=== PATIENT | female | born 1970 ===

== ENCOUNTER 2016-08-09 11:24 | Emergency (ER) | payer OTHER ==
[2016-08-09 11:24] VITALS: BMI 28.1
[2016-08-09 11:29] VITALS: BP 114/73; PULSE 60; RESP 16; TEMP 97.7; O2SAT 100
--- NOTE | 2016-08-09 12:20 | C.PDOC ---
History Of Present Illness 45 year old female presents to the ED with complaints of right shoulder pain s/ p falling 3 days ago. Patient states she was asleep on a chair when she slipped and fell on her right shoulder. Contrary to triage, patient denies any LOC and notes she has been using OTC medication with no relief. Denies head injury, neck pain, back pain, weakness, numbness, or any other complaints at this time. Time Seen by Provider: 08/09/16 11:31 Chief Complaint (Nursing): Upper Extremity Problem/Injury History Per: Patient History/Exam Limitations: no limitations Onset/Duration Of Symptoms: Days Current Symptoms Are (Timing): Still Present Severity: Mild Past Medical History Reviewed: Historical Data, Nursing Documentation, Vital Signs Vital Signs: Last Vital Signs Temp 97.7 F 08/09/16 11:28 Pulse 60 08/09/16 11:28 Resp 16 08/09/16 11:28 BP 114/73 08/09/16 11:28 Pulse Ox 100 08/09/16 13:30 - Medical History PMH: Anxiety, Arthritis, Asthma, Back Problems (HERNIATED DISC), Bipolar Disorder, Depression, Gastritis, Gastrointestinal Ulcer, Hepatitis, Kidney Stones, Pancreatitis, Post Traumatic Stress Disorder - [facility] Procedures INDIVID PSYCHOTHERAP NEC (11/01/12) OTHER GROUP THERAPY (11/01/12) Family History: States: CAD, Diabetes, Hypertension - Social History Hx Tobacco Use: Yes Hx Alcohol Use: No Hx Substance Use: Yes (heroin) - Immunization History Hx Tetanus Toxoid Vaccination: Yes Hx Influenza Vaccination: Yes Hx Pneumococcal Vaccination: No Review Of Systems Constitutional: Negative for: Fever, Chills Cardiovascular: Negative for: Chest Pain, Palpitations Respiratory: Negative for: Shortness of Breath Gastrointestinal: Negative for: Nausea, Vomiting, Abdominal Pain Musculoskeletal: Positive for: Shoulder Pain (+Right shoulder pain). Negative for: Neck Pain, Back Pain Neurological: Negative for: Weakness, Numbness Physical Exam - Physical Exam Appears: Non-toxic, No Acute Distress Skin: Warm, Dry, Ecchymosis (+Area of ecchymosis to the anterior lateral right shoulder) Head: Atraumatic, Normacephalic, No Tenderness, No Swelling, No Abrasion Eye(s): bilateral: Normal Inspection Oral Mucosa: Moist Neck: Supple Chest: Symmetrical Respiratory: No Accessory Muscle Use Extremity: No Normal ROM (Unable to abduct past ~70 degrees), Tenderness (+ Tenderness to the anterior lateral right shoulder), Capillary Refill (< 2 seconds), No Deformity, Swelling (+Swelling to the anterior lateral right shoulder) Pulses: Left Radial: Normal, Right Radial: Normal Neurological/Psych: Oriented x3, Normal Speech, Normal Cognition, Normal Motor, Normal Sensation ED Course And Treatment O2 Sat by Pulse Oximetry: 100 (Room air) Pulse Ox Interpretation: Normal () - Other Rad Right Shoulder X-ray X-Ray: Viewed By Me, Read By Radiologist Interpretation: FINDINGS: BONES: No acute displaced fracture. The right clavicle and underlying ribs appear intact. JOINTS: No acute dislocation. SOFT TISSUES: Soft tissues appear unremarkable. No evidence of radiopaque foreign body. IMPRESSION: No acute displaced fracture or dislocation evident. If symptoms persist or if there is continued clinical concern, x-ray follow- up in 7-10 days should be considered. Right Clavicle X-ray X-Ray: Viewed By Me, Read By Radiologist Interpretation: FINDINGS: BONES: No acute displaced fracture. The right clavicle and underlying ribs appear intact. JOINTS: No acute dislocation. SOFT TISSUES: Soft tissues appear unremarkable. No evidence of radiopaque foreign body. IMPRESSION: No acute displaced fracture or dislocation evident. If symptoms persist or if there is continued clinical concern, x-ray follow- up in 7-10 days should be considered. Medical Decision Making Medical Decision Making: Impression: 45 year old female with right shoulder pain. Plan: * Right Clavicle X-ray * Right Shoulder X-ray * Tylenol * Reassess Progress: Discussed X-ray results with the patient. Arm sling applied by the RN and patient advised follow up with Ortho. Disposition Counseled Patient/Family Regarding: Diagnosis, Need For Followup - Disposition Referrals: Connor Gauthier III, MD [Staff Provider] - Disposition: HOME/ ROUTINE Disposition Time: 13:28 Condition: STABLE Additional Instructions: La radiografa era normal sin fractura Newsoms medicamentos para el dolor cuando sea necesario Instructions: Shoulder Pain (ED) Print Language: MACEDONIAN - POA Present On Arrival: None - Clinical Impression Clinical Impression: Shoulder contusion - PA / MANAGER PRODUCT MARKETING / Resident Statement MD/DO has reviewed & agrees with the documentation as recorded. - Scribe Statement The provider has reviewed the documentation as recorded by the Scribe Esau Rogers. All medical record entries made by the Scribe were at my direction and personally dictated by me. I have reviewed the chart and agree that the record accurately reflects my personal performance of the history, physical exam, medical decision making, and the department course for this patient. I have also personally directed, reviewed, and agree with the discharge instructions and disposition.
--- NOTE | 2016-08-09 13:26 | RAD ---
PROCEDURE: Radiographs of the right shoulder Radiographs of the right clavicle HISTORY: pain s.p fall COMPARISON: None available. FINDINGS: BONES: No acute displaced fracture. The right clavicle and underlying ribs appear intact. JOINTS: No acute dislocation. SOFT TISSUES: Soft tissues appear unremarkable. No evidence of radiopaque foreign body. IMPRESSION: No acute displaced fracture or dislocation evident. If symptoms persist or if there is continued clinical concern, x-ray follow-up in 7-10 days should be considered.
== END 2016-08-09 14:01 | disposition home or self-care (01) ==
LOC: C.ER 11:24
DX: S40.011A Contusion of right shoulder, initial encounter (principal); W07.XXXA Fall from chair, initial encounter

== ENCOUNTER 2016-12-31 14:14 | Emergency (ER) | payer MEDICAID, MEDICARE, OTHER ==
[2016-12-31 14:14] VITALS: BMI 28.1
[2016-12-31 14:18] VITALS: RESP 20
[2016-12-31] MEDS ORDERED: Sodium Chloride 0.9% 1,000 ML IV ONE (15:15)
[2016-12-31] MEDS ORDERED: DiphenhydrAMINE 50 mg/ml Inj IVP STA (15:16)
--- NOTE | 2016-12-31 15:36 | C.PDOC ---
History Of Present Illness 46 y/o female presents to ED for evaluation of gradual development of generalized body pain over the last few days. Pt admits to heroin abuse, and states she "might be withdrawing from heroin". Pt states, she was seen by PMD recently who gave her Rx: Reglan which pt has been taking without significant improvement. Notes, the most of pain is localized over B/L flank area, had 1 episode of vomiting. Otherwise, pt denies fever, chills, headache, weakness, visual changes, focal deficits, neck pain, chest pain, dyspnea, palpitations, shortness of breath, diaphoresis, diarrhea, blood in stool, hematemesis, dysuria , hematuria, urinary frequency. Ambulate to ED for evaluation, not in any apparent distress. Time Seen by Provider: 12/31/16 14:36 Chief Complaint (Nursing): Back Pain History Per: Patient History/Exam Limitations: no limitations Onset/Duration Of Symptoms: Days Current Symptoms Are (Timing): Still Present Quality Of Discomfort: "Pain" Previous Symptoms: None Associated Symptoms: None. denies: Incontinence, New Weakness, New Numbness Exacerbating Factor(s): Nothing Recent travel outside of the [place]: No Additional History Per: Patient Past Medical History Reviewed: Historical Data, Nursing Documentation, Vital Signs Vital Signs: Last Vital Signs Temp 98.1 F 12/31/16 18:56 Pulse 68 12/31/16 18:56 Resp 20 12/31/16 18:56 BP 114/70 12/31/16 18:56 Pulse Ox 99 12/31/16 18:56 - Medical History PMH: Anxiety, Arthritis, Asthma, Back Problems (HERNIATED DISC), Bipolar Disorder, Depression, Gastritis, Gastrointestinal Ulcer, Hepatitis, Kidney Stones, Pancreatitis, Post Traumatic Stress Disorder - [facility] Procedures INDIVID PSYCHOTHERAP NEC (11/01/12) OTHER GROUP THERAPY (11/01/12) Family History: States: CAD, Diabetes, Hypertension - Social History Hx Tobacco Use: Yes Hx Alcohol Use: No Hx Substance Use: Yes (heroin) - Immunization History Hx Tetanus Toxoid Vaccination: Yes Hx Influenza Vaccination: Yes Hx Pneumococcal Vaccination: No Review Of Systems Except As Marked, All Systems Reviewed And Found Negative. Constitutional: Positive for: Other (generalized body pain). Negative for: Fever, Chills Cardiovascular: Negative for: Chest Pain, Palpitations, Light Headedness Respiratory: Negative for: Cough, Shortness of Breath Gastrointestinal: Positive for: Vomiting. Negative for: Abdominal Pain, Diarrhea, Constipation, Hematemesis Genitourinary: Negative for: Dysuria, Frequency, Incontinence, Hematuria Musculoskeletal: Positive for: Back Pain (b/l flank pain) Neurological: Negative for: Headache, Dizziness Physical Exam - Physical Exam Appears: Well, Non-toxic, No Acute Distress Skin: Normal Color, Warm, Dry, No Rash Eye(s): bilateral: PERRL Nose: No Flaring, No Discharge Oral Mucosa: Moist Throat: No Erythema, No Drooling Neck: Trachea Midline, Supple Cardiovascular: Rhythm Regular Respiratory: No Decreased Breath Sounds, No Accessory Muscle Use, No Stridor, No Wheezing Gastrointestinal/Abdominal: Soft, No Tenderness, No Organomegaly, No Distention , No Guarding Back: No CVA Tenderness, No Vertebral Tenderness, Paraspinal Tenderness ( diffuse lumbar paraspinal) Extremity: No Pedal Edema, No Deformity, No Swelling Neurological/Psych: Oriented x3, Normal Speech, Normal Motor, Normal Sensation, Normal Reflexes ED Course And Treatment - Laboratory Results Result Diagrams: 12/31/16 16:53 12/31/16 16:53 Lab Interpretation: No Acute Changes ECG: Interpreted By Me, Viewed By Me ECG Rhythm: Sinus Rhythm ECG Interpretation: Normal Interpretation Of ECG: SR@69/min, NAD, no acute T wave or ST-T changes. O2 Sat by Pulse Oximetry: 100 (on RA) Pulse Ox Interpretation: Normal Progress Note: Blood work, UA ordered and reviewed. Pt was given Benadryl, Reglan, and IV fluids. Pt was OBS in ED for 3 hours and reports some improvement in pain. Afebrile, hemodynamicaly stable. Non-toxic. AMbulatory in ED with stable gait. PulseOx 100% RA. ENT: no acute findings. Neck: Supple , (-) JVD, (-) carotid bruits. Lungs: CTA B/L, BS equal B/L. CVS: (+)S1S2, reg , (-) murmur. Abd: benign. Neuorlogicaly intact. Blood work, EKG review and appears without acute abnormalities. PT has clinical findings c/w generalized bodyaches, likely sec to withdrawal. Discussed with crisis, no detox bed available, pt denies suicidal ideation or attempts. Pt advised to F/U with outpt detox. ref. to F/u with PMD in 2-3 days for re-eavl. return to ED if any worsening or new changes. Disposition Counseled Patient/Family Regarding: Studies Performed, Diagnosis, Need For Followup, Rx Given - Disposition Referrals: Chito Turner MD [Staff Provider] - Disposition: HOME/ ROUTINE Disposition Time: 17:27 Condition: STABLE Additional Instructions: Follow up with PMD, Psychiatrist, Detox in 2-3 days for re-evaluation. Return if any new changes. Prescriptions: traMADol [Ultram] 50 mg PO BID #4 tab Instructions: Opioid Withdrawal (ED) Forms: [employer] (Chinese) - Clinical Impression Clinical Impression: Myalgia, Opioid abuse - PA / COMPUTER SALESPERSON RETAIL / Resident Statement MD/DO has reviewed & agrees with the documentation as recorded. - Scribe Statement The provider has reviewed the documentation as recorded by the Scribe Mark Mosquera All medical record entries made by the Scribe were at my direction and personally dictated by me. I have reviewed the chart and agree that the record accurately reflects my personal performance of the history, physical exam, medical decision making, and the department course for this patient. I have also personally directed, reviewed, and agree with the discharge instructions and disposition.
[2016-12-31 16:01] LABS: RBC URINE 1 /hpf (0-3); URINE BILIRUBIN NEGATIVE (NEGATIVE); URINE BLOOD 1+ (NEGATIVE); URINE COLOR Straw (YELLOW); URINE GLUCOSE (UA) NORMAL (Normal); URINE KETONE NEGATIVE (NEGATIVE); URINE LEUKOCYTE ESTERASE NEG Leu/uL (Negative); URINE PROTEIN NEGATIVE (NEGATIVE); URINE UROBILINOGEN NORMAL mg/dL (0.2-1.0); WBC URINE < 1 /hpf (0-5)
[2016-12-31] MEDS ORDERED: DiphenhydrAMINE 50 mg/ml Inj ONE (16:32)
[2016-12-31] MEDS ORDERED: Sodium Chloride 0.9% 1,000 ML ONE (16:32)
[2016-12-31 16:56] LABS: EOS # 0.2 K/uL (0.0-0.7); EOS % 4.4 % (0.0-4.0); HEMATOCRIT 40.2 % (34.0-47.0); LYMPH # 2.1 K/uL (1.0-4.3); LYMPH % 44.4 % (20.0-40.0); MEAN CELL VOLUME 97.5 fL (81.0-99.0); MEAN CORPUSCULAR HEMOGLOBIN 32.2 pg (27.0-31.0); MEAN PLATELET VOLUME 8.8 fL (7.2-11.7); MONO # 0.4 K/uL (0.0-0.8); MONO % 8.2 % (0.0-10.0); RED CELL DISTRIBUTION WIDTH 14.2 % (11.5-14.5); WHITE BLOOD COUNT 4.7 K/uL (4.8-10.8)
[2016-12-31 17:33] LABS: CHLORIDE 106 mmol/L (98-107); POTASSIUM 4.5 mmol/L (3.6-5.2); SODIUM 140 mmol/L (132-148)
[2016-12-31 17:35] LABS: ALB/GLOB RATIO 1.3 (1.0-2.1); AST/SGOT 27 U/L (14-36); BILIRUBIN,TOTAL 0.4 mg/dL (0.2-1.3); CARBON DIOXIDE 26 mmol/L (22-30); GFR AFRICAN-AMERICAN > 60; TOTAL PROTEIN 6.8 g/dL (6.3-8.3)
[2016-12-31 17:36] LABS: ALCOHOL SERUM < 10 mg/dl (0-10); ALKALINE PHOSPHATASE 74 U/L (38-126); ALT/SGPT 30 U/L (9-52); BLOOD UREA NITROGEN 15 mg/dL (7-17); CALCIUM 8.5 mg/dl (8.6-10.4); GLUCOSE,RANDOM 79 mg/dL (65-105)
[2016-12-31 18:57] VITALS: BP 114/70; PULSE 68; TEMP 98.1
[2017-01-01 07:37] VITALS: O2SAT 100
--- NOTE | 2017-01-03 13:51 | CARD ---
APPROVED REPORT EKG Measurement Heart [id number] <Conclusion> Normal sinus rhythm Prolonged QT Abnormal ECG
== END 2016-12-31 18:58 | disposition home or self-care (01) ==
LOC: C.ER 14:14
DX: M79.1 Myalgia (principal); F11.10 Opioid abuse, uncomplicated
CPT/HCPCS: 80053; 81001; 84484; 84703; 85025; 96361; 96374; 96375; 99284; G0480; J1200; J2765; J7040

== ENCOUNTER 2017-12-03 09:32 | Emergency (ER) | payer OTHER ==
[2017-12-03 09:33] VITALS: BMI 31.0
[2017-12-03 09:44] VITALS: RESP 16; TEMP 98; O2SAT 98
--- NOTE | 2017-12-03 10:18 | C.PDOC ---
History Of Present Illness <Sowmya Painter - Last Filed: 12/03/17 10:50> <Waleska Castro - Last Filed: 12/03/17 11:44> CC: Abdominal pain and vaginal bleeding Patient is a 47 year old female with past medical history of PSTD and bipolar, who presents to the ED with complaint of abdominal pain originating from the umbilical region and vaginal bleeding that started on Saturday night after sexual intercourse. Patient describes her abdominal pain as sharp and cramping that is localized to the umbilical region. Patient has taken Tylenol, which provided minimal relief,. Patient is on chronic pain management; oxycontin 30mg PO Q12H and patient has recently ran out of her pain medication. Patient's clinical presentation can be secondary to pain medication withdrawal. Patient admits to associated symptoms of nausea. (Waleska Castro) <Sowmya Painter - Last Filed: 12/03/17 10:50> History Per: Patient History/Exam Limitations: no limitations Onset/Duration Of Symptoms: Days Current Symptoms Are (Timing): Still Present Severity: Mild Pain Scale Rating Of: 4 Quality Of Discomfort: Sharp, Cramping Associated Symptoms: Nausea, Other Alleviating Factors: None Recent travel outside of the [place]: No Abnormal Vaginal Bleeding: Yes Last Menstral Period: 11/22/17 <Waleska Castro - Last Filed: 12/03/17 11:44> Time Seen by Provider: 12/03/17 09:41 Chief Complaint (Nursing): Female Genitourinary Past Medical History - Medical History PMH: Anxiety, Arthritis, Asthma, Back Problems (HERNIATED DISC), Bipolar Disorder, Depression, Gastritis, Gastrointestinal Ulcer, Hepatitis, Kidney Stones, Pancreatitis, Post Traumatic Stress Disorder Denies: Diabetes, HIV, HTN, Seizures, Sexually Transmitted Disease Surgical History: Denies: CABG Family History: States: Unknown Family Hx, CAD, Diabetes, Hypertension - Social History Hx Tobacco Use: Yes Hx Alcohol Use: No Hx Substance Use: Yes (heroin) - Immunization History Hx Tetanus Toxoid Vaccination: Yes Hx Influenza Vaccination: Yes Hx Pneumococcal Vaccination: No <Waleska Castro - Last Filed: 12/03/17 11:44> Vital Signs: Last Vital Signs Temp 98 F 12/03/17 09:40 Pulse 79 12/03/17 10:54 Resp 16 12/03/17 10:54 BP 101/65 12/03/17 10:54 Pulse Ox 98 12/03/17 10:54 - [facility] Procedures INDIVID PSYCHOTHERAP NEC (11/01/12) OTHER GROUP THERAPY (11/01/12) Review Of Systems Constitutional: Negative for: Fever, Chills Gastrointestinal: Positive for: Nausea, Abdominal Pain. Negative for: Vomiting Genitourinary: Positive for: Vaginal Bleeding Neurological: Negative for: Dizziness <Waleska Castro - Last Filed: 12/03/17 11:44> Physical Exam - Physical Exam Appears: Well Skin: Normal Color Head: Atraumatic, Normacephalic Eye(s): bilateral: Abnormal Pupil Oral Mucosa: Moist Cardiovascular: Rhythm Regular Respiratory: Normal Breath Sounds, No Decreased Breath Sounds, No Accessory Muscle Use, No Rales Gastrointestinal/Abdominal: Normal Exam, Bowel Sounds, Soft, Tenderness Back: No CVA Tenderness Disoriented To: Person, Place Gait: Steady <Waleska Castro - Last Filed: 12/03/17 11:44> ED Course And Treatment - Laboratory Results Urine POC: Negative O2 Sat by Pulse Oximetry: 98 <Waleska Castro - Last Filed: 12/03/17 11:44> Disposition - POA Present On Arrival: None <Sowmya Painter - Last Filed: 12/03/17 10:50> Counseled Patient/Family Regarding: Diagnosis, Rx Given - Disposition Disposition Time: 10:33 <Waleska Castro - Last Filed: 12/03/17 11:44> - Disposition Disposition: HOME/ ROUTINE Condition: STABLE Additional Instructions: Please follow up with your primary care physician as scheduled tomorrow Please follow up with your gynecology for abnormal vaginal bleeding Please follow up with your pain management physician regarding lowering your pain medication dose/ weaning. Weaning can also be done through detox. Forms: [facility] (Belarusian), General Discharge Instructions - Clinical Impression Clinical Impression: DUB (dysfunctional uterine bleeding), Chronic pain with drug dependence, Abdominal pain
[2017-12-03 10:55] VITALS: BP 101/65; PULSE 79
== END 2017-12-03 10:54 | disposition home or self-care (01) ==
LOC: C.ER 09:32
DX: N93.8 Other specified abnormal uterine and vaginal bleeding (principal); G89.29 Other chronic pain; F19.20 Other psychoactive substance dependence, uncomplicated; R10.9 Unspecified abdominal pain; Z72.0 Tobacco use
CPT/HCPCS: 96372; 99283; J1885

== ENCOUNTER 2018-04-19 18:26 | Emergency (ER) | payer OTHER ==
[2018-04-19 18:27] VITALS: BMI 31.0
[2018-04-19 18:39] VITALS: BP 107/73; PULSE 87; TEMP 98.1; O2SAT 97
--- NOTE | 2018-04-19 19:25 | C.PDOC ---
History Of Present Illness 47 y/o female with hx peptic ulcer and pancreatitis c/o pain and swelling to right knee s/p twist injury few days ago. pt seen at another ed, had neg xray per pt and has trinh bandage on and has been applying frequent cold packs. pt taking only tylenol at home; has rx for oxycodone but her pharmacy has been unable to fill it until saturday. unable to take nsaids due to peptic ulcer. Time Seen by Provider: 04/19/18 19:03 Chief Complaint (Nursing): Lower Extremity Problem/Injury History Per: Patient History/Exam Limitations: no limitations Onset/Duration Of Symptoms: Days Current Symptoms Are (Timing): Still Present Severity: Moderate - Knee Description Of Injury: Twisted Currently Unable To: Bend Or Move Alleviating Factor(s): Ice Therapy. denies: OTC Pain Medication Past Medical History Reviewed: Historical Data, Nursing Documentation, Vital Signs Vital Signs: Last Vital Signs Temp 98.1 F 04/19/18 18:35 Pulse 87 04/19/18 18:35 Resp 18 04/19/18 18:35 BP 107/73 04/19/18 18:35 Pulse Ox 97 04/19/18 18:35 - Medical History PMH: Anxiety, Arthritis, Asthma, Back Problems (HERNIATED DISC), Bipolar Di sorder, Depression, Gastritis, Gastrointestinal Ulcer, Hepatitis, HTN, Kidney Stones, Pancreatitis, Post Traumatic Stress Disorder, Chronic Kidney Disease Denies: Diabetes, HIV, Seizures, Sexually Transmitted Disease Surgical History: Denies: CABG - [facility] Procedures GROUP PSYCHOTHERAPY (02/27/18) INDIV PSYCHOTHERAPY FOR SUBSTANCE ABUSE, COGNITIV BEHAVIORAL (02/27/18) INDIV PSYCHOTHERAPY FOR SUBSTANCE ABUSE, MOTIVATION ENHANCE (02/27/18) INDIV PSYCHOTHERAPY FOR SUBSTANCE ABUSE, PSYCHOEDUCATION (02/27/18) INDIVID PSYCHOTHERAP NEC (11/01/12) INDIVIDUAL PSYCHOTHERAPY, SUPPORTIVE (02/27/18) OTHER GROUP THERAPY (11/01/12) Family History: States: Unknown Family Hx, CAD, Diabetes, Hypertension - Social History Hx Tobacco Use: Yes Hx Alcohol Use: Yes Hx Substance Use: No - Immunization History Hx Tetanus Toxoid Vaccination: No Hx Influenza Vaccination: No Hx Pneumococcal Vaccination: No Review Of Systems Constitutional: Negative for: Fever, Chills Musculoskeletal: Positive for: Other (right knee pain). Negative for: Foot Pain Skin: Negative for: Rash Neurological: Negative for: Weakness, Numbness Physical Exam - Physical Exam Appears: Non-toxic, No Acute Distress Skin: Warm, Dry Head: Atraumatic, Normacephalic Extremity: No Normal ROM (dec rom righ tknee), Tenderness (right medial knee), No Calf Tenderness, Swelling (right knee, no erythema or warmth) Pulses: Right Dorsalis Pedis: Normal Neurological/Psych: Oriented x3, Normal Speech, Normal Cognition, Normal Motor, Normal Sensation ED Course And Treatment O2 Sat by Pulse Oximetry: 97 Medical Decision Making Medical Decision Making: core drill operator reviewed. pt filled 5 day supply of oxycodone on 04/10. will give one tab percocet in ed. Disposition Counseled Patient/Family Regarding: Diagnosis, Need For Followup - Disposition Referrals: Moiz Mejia MD [Staff Provider] - Disposition: HOME/ ROUTINE Disposition Time: 19:34 Condition: GOOD Additional Instructions: Continue with cold packs to right knee several times a day. Take Tylenol for pain. Follow up with your orthopedist or Dr Mejia. Wear knee immobilizer for comfort during daytime. Instructions: Knee Sprain (DC) Forms: [facility] (Iranian), General Discharge Instructions - Clinical Impression Clinical Impression: Right knee sprain
[2018-04-19] MEDS ORDERED: Oxycodone/Acetaminophen 5/325 mg Tab PO STA (19:26)
[2018-04-19] MEDS ORDERED: Oxycodone/Acetaminophen 5/325 mg Tab ONE (19:31)
[2018-04-19 19:56] VITALS: RESP 20
== END 2018-04-19 19:55 | disposition home or self-care (01) ==
LOC: C.ER 18:26
DX: S83.91XD Sprain of unspecified site of right knee, subsequent encounter (principal); X50.1XXD Overexertion from prolonged static or awkward postures, subsequent encounter

== ENCOUNTER 2018-04-28 05:30 | Emergency (ER) | payer OTHER ==
[2018-04-28 05:30] VITALS: BMI 31.0
[2018-04-28 05:54] VITALS: TEMP 98.3
--- NOTE | 2018-04-28 06:07 | C.PDOC ---
History Of Present Illness 47 y/o female with a PMHx of chronic knee pain and arthritis presents to the ED complaining of bilateral knee pain, unchanged from prior. Patient is currently on pain management regimen. She presents requesting pain meds, stating that her Percocet ran out, and they were not helping anyway. Denies any trauma or fall. No changes in sensation. Time Seen by Provider: 04/28/18 05:42 Chief Complaint (Nursing): Lower Extremity Problem/Injury History Per: Patient History/Exam Limitations: no limitations Onset/Duration Of Symptoms: Days Current Symptoms Are (Timing): Still Present Past Medical History Reviewed: Historical Data, Nursing Documentation, Vital Signs Vital Signs: Last Vital Signs Temp 98.3 F 04/28/18 05:36 Pulse 76 04/28/18 05:36 Resp 14 04/28/18 05:36 BP 110/70 04/28/18 05:36 Pulse Ox 98 04/28/18 05:36 - Medical History PMH: Anxiety, Arthritis, Asthma, Back Problems (HERNIATED DISC), Bipolar Disorder, Depression, Gastritis, Gastrointestinal Ulcer, Hepatitis, HTN, Kidney Stones, Pancreatitis, Post Traumatic Stress Disorder, Chronic Kidney Disease, Chronic Pain Denies: Diabetes, HIV, Seizures, Sexually Transmitted Disease Surgical History: Denies: CABG - [facility] Procedures GROUP PSYCHOTHERAPY (02/27/18) INDIV PSYCHOTHERAPY FOR SUBSTANCE ABUSE, COGNITIV BEHAVIORAL (02/27/18) INDIV PSYCHOTHERAPY FOR SUBSTANCE ABUSE, MOTIVATION ENHANCE (02/27/18) INDIV PSYCHOTHERAPY FOR SUBSTANCE ABUSE, PSYCHOEDUCATION (02/27/18) INDIVID PSYCHOTHERAP NEC (11/01/12) INDIVIDUAL PSYCHOTHERAPY, SUPPORTIVE (02/27/18) OTHER GROUP THERAPY (11/01/12) Family History: States: CAD, Diabetes, Hypertension - Social History Hx Tobacco Use: Yes Hx Alcohol Use: Yes Hx Substance Use: No - Immunization History Hx Tetanus Toxoid Vaccination: No Hx Influenza Vaccination: No Hx Pneumococcal Vaccination: No Review Of Systems Constitutional: Negative for: Fever Musculoskeletal: Positive for: Leg Pain (bilateral knee pain) Skin: Negative for: Rash, Lesions Neurological: Negative for: Weakness, Numbness, Incoordination Physical Exam - Physical Exam Appears: Non-toxic, No Acute Distress Skin: Warm, Dry Head: Atraumatic, Normacephalic Eye(s): bilateral: Normal Inspection Neck: Normal ROM Chest: Symmetrical Respiratory: No Accessory Muscle Use Extremity: Tenderness (to the bilateral knees), No Calf Tenderness, No Deformity, Swelling (mild), Other (Varicose veins noted) Pulses: Left Dorsalis Pedis: Normal, Right Dorsalis Pedis: Normal Neurological/Psych: Oriented x3, Normal Motor (strength equal bilaterally), Normal Sensation ED Course And Treatment O2 Sat by Pulse Oximetry: 98 (RA) Pulse Ox Interpretation: Normal Progress Note: [place] BRICK HANDLER aware checked Patient has several visits. She was given 15 tabs of oxycodone on 04/10, 10 tabs on 04/21, as well as 15 on 04/24. Advised patient of the hospitals narcotic policy. Patient instructed to follow up with her PMD for pain management. Disposition Counseled Patient/Family Regarding: Diagnosis, Need For Followup, Rx Given - Disposition Referrals: PMD, Orthopedist [Other] Disposition: HOME/ ROUTINE Disposition Time: 06:07 Condition: STABLE Additional Instructions: Please follow up with your PMD Continue your current management Return to ER if worse Instructions: Chronic Knee Pain (DC) Forms: [facility] (Danish) - Clinical Impression Clinical Impression: Chronic knee pain - PA / TELEVISION ANCHOR / Resident Statement MD/DO has reviewed & agrees with the documentation as recorded. - Scribe Statement The provider has reviewed the documentation as recorded by the Scribabe Toussaint All medical record entries made by the Oscaribabe were at my direction and personally dictated by me. I have reviewed the chart and agree that the record accurately reflects my personal performance of the history, physical exam, medical decision making, and the department course for this patient. I have also personally directed, reviewed, and agree with the discharge instructions and disposition.
[2018-04-28 06:37] VITALS: BP 116/77; PULSE 83; RESP 18
[2018-04-28 06:42] VITALS: O2SAT 98
== END 2018-04-28 06:38 | disposition home or self-care (01) ==
LOC: C.ER 05:30
DX: G89.29 Other chronic pain (principal); M25.562 Pain in left knee; M25.561 Pain in right knee

== ENCOUNTER 2018-08-25 07:07 | Emergency (ER) | payer OTHER ==
[2018-08-25 07:08] VITALS: BMI 33.5
--- NOTE | 2018-08-25 07:10 | C.PDOC ---
History Of Present Illness 47 year old female with PMHx of anxiety, osteoarthritis, asthma, herniated disc, depression, pancreatitis, and chronic pain presents to the ED with left knee pain s/p mechanical trip and fall that occurred at 6:30 am today. Patient states that she tripped on a walker that was on the ground. Patient states that she fell onto her left knee. She denies taking any medication for pain and is not currently on any blood thinners. She denies head trauma/impact, chest pain/impact, abdominal pain/impact, back pain, knee bending inward, depression, suicidal ideation, and homicidal ideation. Time Seen by Provider: 08/25/18 07:10 Chief Complaint (Nursing): Lower Extremity Problem/Injury History Per: Patient History/Exam Limitations: no limitations Onset/Duration Of Symptoms: Hrs (1) Current Symptoms Are (Timing): Still Present - Knee Description Of Injury: Fell Past Medical History Reviewed: Historical Data, Nursing Documentation, Vital Signs - Medical History PMH: Anxiety, Arthritis, Asthma, Back Problems (HERNIATED DISC), Bipolar Disorder, Depression, Gastritis, Gastrointestinal Ulcer, Hepatitis, HTN, Kidney Stones, Pancreatitis, Post Traumatic Stress Disorder, Chronic Kidney Disease, Chronic Pain Denies: Diabetes, HIV, Seizures, Sexually Transmitted Disease Surgical History: Denies: CABG - [facility] Procedures GROUP PSYCHOTHERAPY (02/27/18) INDIV PSYCHOTHERAPY FOR SUBSTANCE ABUSE, COGNITIV BEHAVIORAL (02/27/18) INDIV PSYCHOTHERAPY FOR SUBSTANCE ABUSE, MOTIVATION ENHANCE (02/27/18) INDIV PSYCHOTHERAPY FOR SUBSTANCE ABUSE, PSYCHOEDUCATION (02/27/18) INDIVID PSYCHOTHERAP NEC (11/01/12) INDIVIDUAL PSYCHOTHERAPY, SUPPORTIVE (02/27/18) OTHER GROUP THERAPY (11/01/12) Family History: States: Unknown Family Hx, CAD, Diabetes, Hypertension - Social History Hx Tobacco Use: Yes Hx Alcohol Use: Yes Hx Substance Use: No - Immunization History Hx Tetanus Toxoid Vaccination: No Hx Influenza Vaccination: No Hx Pneumococcal Vaccination: No Review Of Systems Constitutional: Negative for: Fever, Chills, Sweats, Weakness, Malaise Eyes: Negative for: Pain, Vision Change, Conjunctivae Inflammation, Eyelid Inflammation ENT: Negative for: Ear Pain, Ear Discharge, Nose Pain, Nose Congestion, Mouth Pain, Mouth Swelling Cardiovascular: Negative for: Chest Pain, Palpitations, Orthopnea, Edema Respiratory: Negative for: Cough, Shortness of Breath, SOB with Excertion, Pleuritic Pain Gastrointestinal: Negative for: Nausea, Vomiting, Abdominal Pain, Constipation, Melena Genitourinary: Negative for: Dysuria, Frequency Musculoskeletal: Positive for: Leg Pain (left knee pain ). Negative for: Neck Pain, Shoulder Pain, Back Pain Skin: Negative for: Rash, Lesions Neurological: Negative for: Weakness, Numbness, Headache Psych: Negative for: Anxiety, Depression, Psychosis, Suicidal ideation Physical Exam - Physical Exam Appears: Well, Non-toxic, No Acute Distress Skin: Warm, Dry Head: Normacephalic Eye(s): bilateral: Normal Inspection, PERRL, EOMI Nose: Normal Oral Mucosa: Moist Tongue: Normal Appearing Lips: Normal Appearing Throat: Normal, No Erythema, No Exudate, No Drooling, No Mass Neck: Normal ROM, Trachea Midline, No Midline Cervical Tenderness, No Paracervical Tenderness, Supple, No Other (meningeal signs- negative kernig's and brudzinskis) Chest: Symmetrical, No Deformity Cardiovascular: Rhythm Regular, No Friction Rub Respiratory: No Rales, No Rhonchi, No Wheezing Gastrointestinal/Abdominal: Soft, No Tenderness, No Distention Back: Normal Inspection, No CVA Tenderness, No Vertebral Tenderness, No Decreased ROM, No Muscle Spasm Extremity: Normal ROM (left knee -FROM), Tenderness (anterior left knee tender to palpation ), No Calf Tenderness, Capillary Refill (<2 seconds), Other (Neurovascular intact b/l le) Extremity: Bilateral: Atraumatic, Hips Non-Tender, Normal Color And Temperature, Normal ROM Pulses: Left Dorsalis Pedis: Normal, Right Dorsalis Pedis: Normal Neurological/Psych: Oriented x3, Normal Speech, Normal Cognition, Normal Cranial Nerves, No Cerebellar Signs, Normal Motor, Normal Sensation Gait: Steady Extremity: Right: No Drift, Left: No Drift, Upper: No Drift, Lower: No Drift ED Course And Treatment - Other Rad Left knee X-ray X-Ray: Interpreted by Me, Viewed By Me Interpretation: Unremarkable. No fracture. No dislocation. Medical Decision Making Medical Decision Making: Impression:47 year old female with PMHx of anxiety, osteoarthritis, asthma, herniated disc, depression, pancreatitis, and chronic pain presents to the ED with left knee pain s/p mechanical trip and fall that occurred at 6:30 am today. No head impact or blood thinner usage. No abd pain / abd impact or chest pain. No hip pain. No FND, normal neuro exam. No depression or SI / HI. Notes family member recently: wants to speak to psych/CRISIS. No back pain or cauda eq uina signs. MDM: Fracture vs Sprain Initial Plan: Tylenol PO Left Knee X-ray POC U-preg 08: Left knee X-ray unremarkable. Pending psychiatric evaluation. 09 seen by CRISIS, cleared for d/c home; likely bereavement pt requested something to calm her down 918 reassessed pt, int NAD, states she is feeling calm, denies any current anxiety, depression or SI /HI. No hallucination. Normal affect REpeat neuro exam unremarkable. Pain improved to L knee, remains n/v intact, negative thompsons test b/l Strong steady gait noted, without limp. clear for d/c home with return indications and f/u. She is agreeable to plan Disposition - Disposition Referrals: Collin Mcgovern MD [Staff Provider] - [facility] [Outside] [facility]] [facility] [Outside] Brooks Bailon MD [Medical Doctor] - [facility] [Outside] [facility] [place] [Outside] Disposition Time: 09:17 Condition: STABLE Additional Instructions: KILO GONZALEZ, thank you for letting us take care of you today. Your provider was Augustus Lang and you were treated for KNEE PAIN. The emergency medical care you received today was directed at your acute symptoms. If you were prescribed any medication, please fill it and take as directed. It may take several days for your symptoms to resolve. Return to the Emergency Department if your symptoms worsen, do not improve, or if you have any other problems. Please contact your doctor or call one of the physicians/clinics you have been referred to that are listed on the Patient Visit Information form that is included in your discharge packet. Bring any paperwork you were given at discharge with you along with any medications you are taking to your follow up visit. Our treatment cannot replace ongoing medical care by a primary care provider outside of the emergency department. Thank you for allowing the [facility] team to be part of your care today. If you had an X-Ray or CT scan: A Radiologist will review the ED reading if any change in treatment is needed we will contact you. If you had a blood, urine, or wound culture: It will take several days for the results, if any change in treatment is needed we will contact you. If you had an STI test: It will take 48 hours for the results. Please call after 1 week if you have not heard back. Instructions: Knee Sprain (DC), Dealing With , Adult, Knee Pain (DC) Forms: [facility] ([place]) - Clinical Impression Clinical Impression: Left knee pain, Knee sprain, Bereavement - Scribe Statement The provider has reviewed the documentation as recorded by the Scribe (Salud Jarquin) All medical record entries made by the Scribe were at my direction and personally dictated by me. I have reviewed the chart and agree that the record accurately reflects my personal performance of the history, physical exam, medical decision making, and the department course for this patient. I have also personally directed, reviewed, and agree with the discharge instructions and disposition.
[2018-08-25 07:17] VITALS: RESP 20
[2018-08-25 09:17] VITALS: BP 110/72; PULSE 59; TEMP 98; O2SAT 100
--- NOTE | 2018-08-25 10:59 | RAD ---
Date of service: 08/25/2018 PROCEDURE: Left Knee Radiographs. HISTORY: Pain. COMPARISON: None TECHNIQUE: 3 views obtained. FINDINGS: BONES: Bone alignment and mineralization are normal. There is no acute displaced fracture or bone destruction. JOINTS: There is mild tricompartmental degenerative osteoarthrosis with reduced joint spaces, marginal osteophytes and tibial spiking, worse in the medial compartment. JOINT EFFUSION: There is a moderate suprapatellar joint effusion. OTHER FINDINGS: None. IMPRESSION: No acute fracture or dislocation. Mild tricompartmental degenerative osteoarthrosis, worse in the medial compartment. Moderate suprapatellar joint effusion.
== END 2018-08-25 09:31 | disposition home or self-care (01) ==
LOC: C.ER 07:07
DX: S83.92XA Sprain of unspecified site of left knee, initial encounter (principal); W01.0XXA Fall on same level from slipping, tripping and stumbling without subsequent striking against object, initial encounter; Z63.4 Disappearance and death of family member